=== PATIENT | female | born 1945 | race Caucasian/White ===

== ENCOUNTER 2023-05-15 09:04 | Emergency (ER) | payer MEDICARE, OTHER, SELFPAY ==
--- NOTE | ~2023-05-15 | XR_ITS ---
EXAMINATION: XR scapula RT INDICATION: Right shoulder pain TECHNIQUE: Two views of the right scapula are obtained. COMPARISON: None available FINDINGS: No scapular fracture is identified. 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 There are minimally displaced posterior fractures of the right sixth and ninoska nth ribs. IMPRESSION: 1. No scapular fracture identified. 2. Minimally displaced posterior fractures of the right sixth and seventh ribs. Reviewed, dictated and finalized at location F. FASTENER
--- NOTE | ~2023-05-15 | XR_ITS ---
EXAMINATION: XR ribs RT 2V w CXR 2V INDICATION: Right rib pain TECHNIQUE: PA and lateral views of the chest and 3 views of the right ribs were obtained. COMPARISON: 02/02/2007 FINDINGS: The lungs are free of acute opacities. No pleural effusion or pneumothorax. The cardiomedia stinal silhouette is normal. There is mild thoracic spondylosis. There are acute, minimally displaced posterior fractures of the right sixth and seventh ribs. IMPRESSION: 1. No acute cardiopulmonary abnormality. 2. Minimally displaced posterior fractures of the right sixth and seventh ribs. Reviewed, dictated and finalized at location F. FORCE SPECIALIST
--- NOTE | ~2023-05-15 | XR_ITS ---
EXAMINATION: XR thoracic spine 3V DATE: 05/15/2023 10:19 INDICATION: Mid back pain TECHNIQUE: AP, lateral and lateral swimmer's views of the thoracic spine were obtained. COMPARISON: None FINDINGS: Bone alignment is normal. There is no fracture. The vertebral body heights are maintained. There is mild loss of intervertebral disc space height at multiple levels in the thoracic spine. Smal l degenerative osteophytes project from the anterior endplates of multiple vertebral bodies. IMPRESSION: 1. Mild thoracic spondylosis without acute abnormality of the thoracic spine. Reviewed, dictated and finalized at location F. BASE SPECIALIST
[2023-05-15 09:13] VITALS: BP 156/62; PULSE 64; RESP 18; TEMP 36.3; O2SAT 100
--- NOTE | 2023-05-15 10:04 | ED.BACK ---
HPI - Back Pain/Injury General Chief Complaint: Back Pain/Injury Stated Complaint: back pain Time Seen by Provider: 05/15/23 09:19 Source: patient Mode of arrival: ambulatory Limitations: no limitations History of Present Illness HPI Narrative: Patient is a 78 y/o female who presents to the ED with c/o R mid back pain. 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 She hit her R mid back in the fall, denied any HI/LOC. She c/o pain to her R mid back under her shoulder blade since then with intermittent spasms. She has been taking Advil and her husbands leftover [place] at home without much relief. Last took Advil this am. Pain worse with any movement. Denies SOB, anterior CP, numbness/tingling, lower back pain. Related Data Allergies Allergy/AdvReac Type Severity Reaction Status Date / Time Penicillins AdvReac Hives Verified 05/15/23 09:19 Review of Systems Review of Systems: CONSTITUTIONAL: Denies fever, chills, or sweats. CARDIOVASCULAR: Denies chest pain. RESPIRATORY: Denies cough or dyspnea. GASTROINTESTINAL: Denies abdominal pain, nausea, vomiting. MUSCULOSKELETAL: See HPI. NEUROLOGIC: Denies headache, numbness, or weakness. All systems reviewed & are unremarkable except as noted in HPI and below Exam Narrative: GENERAL: Mildly uncomfortable appearing, well-nourished, non-toxic, in no acute distress. HEAD: Normocephalic, atraumatic. NECK: Supple. No adenopathy, no masses. RESPIRATORY: Airway patent, respirations nonlabored. Clear to auscultation bilaterally, no rales, rhonchi, wheezing. CARDIOVASCULAR: Regular rate and rhythm without murmurs, rubs, or gallops. Peripheral pulses 2+ and equal bilaterally. MUSCULOSKELETAL: Moves all extremities. Strength/ROM intact without gross deformities. No midline cervical, thoracic, lumbar spinal tenderness. Tenderness to palpation over right mid thoracic region just inferior to right scapula, and along posterior ribcage. No palpable bony deformities. SKIN: Warm, dry, normal color. No rashes. NEURO: A&O X3. Speech clear. Cranial nerves II-XII grossly intact. Steady gait. No ataxic movements. PSYCHIATRIC: Appropriate mood and affect. Normal interaction. Course Vital Signs Vital signs: Vital Signs Temperature 97.4 F L 05/15/23 09:13 Pulse Rate 64 05/15/23 09:13 Respiratory Rate 18 05/15/23 09:13 Blood Pressure 156/62 H 05/15/23 09:13 Pulse Oximetry 100 05/15/23 09:13 Oxygen Delivery Room Air 05/15/23 09:13 Temperature 97.4 F L 05/15/23 09:13 Pulse Rate 64 05/15/23 09:13 Respiratory Rate 18 05/15/23 09:13 Blood Pressure 156/62 H 05/15/23 09:13 Pulse Oximetry 100 05/15/23 09:13 Oxygen Delivery Room Air 05/15/23 09:13 MDM - Back Pain/Injury MDM Narrative Medical decision making narrative: Patient present ED several days s/p ground level mechanical fall, pain to right mid back. VSS upon arrival. Patient in no acute distress but does move very apprehensively, mildly uncomfortable appearing. Neurovascularly intact. Will obtain imaging and attempt pain control, re-evaluate. Imaging obtained shows fractures of two posterior ribs, minimally displaced. Patient updated on imaging results. Will be given incentive spirometer. No evidence of pneumothorax or other pulmonary abnormality on imaging. Denying shortness breath, no respiratory distress. Vital stable. Patient will be discharged at this time with pain management for home. Did discuss strict return precautions. Patient in agreement w/ plan. All questions answered. Discharged in stable condition. Medical Records Attestation: I reviewed the patient's medical records. Imaging Data Attestation: I personally reviewed and interpreted this imaging study as follows: Radiologist's impression: ITS Impressions Ribs w/Chest X-Ray 05/15/23 10:20 IMPRESSION: 1. No ac
[2023-05-15] MEDS: CYCLOBENZAPRINE HCL 5 MG TABLET PO (10:27)
[2023-05-15] MEDS: ACETAMINOPHEN 500 MG TABLET 1000 MG PO (10:27)
[2023-05-15 11:38] VITALS: BP 136/60; PULSE 60; RESP 16; TEMP 36.3; O2SAT 100
== END 2023-05-15 11:54 | disposition home or self-care (01) ==
PROVIDERS: Emergency Provider Physician Assistant
DX: S22.41XA Multiple fractures of ribs, right side, initial encounter for closed fracture (principal); W01.0XXA Fall on same level from slipping, tripping and stumbling without subsequent striking against object, initial encounter; M47.814 Spondylosis without myelopathy or radiculopathy, thoracic region
CPT/HCPCS: 71046; 71100; 72072; 73010; 99284; A9270